=== PATIENT | male | born 1960 | race Caucasian/White ===

== ENCOUNTER 2019-10-07 23:16 | Emergency (ER) | payer OTHER ==
[2019-10-07] MEDS: Sodium Chloride 0.9% 1,000 ML IV ONE (23:35)
[2019-10-07] MEDS: Thiamine 100 MG Tab PO ONE (23:40)
[2019-10-07] MEDS: Multivitamin, Childrens Tab.Chew PO SCH (23:45)
--- NOTE | 2019-10-08 00:02 | EDM.PDOC ---
ED HPI GENERAL MEDICAL PROBLEM - General Chief Complaint: General Stated Complaint: Seizure Time Seen by Provider: 10/07/19 23:25 Source of Information: Reports: Patient, EMS History Limitations: Reports: Intoxication - History of Present Illness INITIAL COMMENTS - FREE TEXT/NARRATIVE: Patient is [place] with friends [place]. He has been drinking since early AM consuming approximately 15+ alcoholic drinks. He states he did have some water through out the day. They were playing cards and he was witnessed to have some 'jerking motion' believed to be a seizure for approximately 4 minutes. He did fall and hit his head. He does not remember the incident. On arrival he is talking appropriately. He knows his name, where he is, and the president of the . Initial Neuro exam on arrival is without deficit. GCS is 15. Onset: Today, Sudden Onset Date: 10/07/19 Onset Time: 22:00 Duration: Minutes: (4 ) Location: Reports: Head (wittnest seizure like activity, abrasion top left) Quality: Reports: Other (denies pain) Improves with: Reports: None Worsens with: Reports: None Associated Symptoms: Reports: Confusion - Related Data Allergies Allergy/AdvReac Type Severity Reaction Status Date / Time No Known Allergies Allergy Verified 10/08/19 02:18 ED ROS GENERAL - Review of Systems Review Of Systems: See Below Constitutional: Reports: No Symptoms HEENT: Reports: Sinus Problem Respiratory: Denies: Shortness of Breath, Wheezing, Cough Cardiovascular: Reports: Blood Pressure Problem (lisinopril for hypertension), Lightheadedness. Denies: Chest Pain, Dyspnea on Exertion, Edema, Syncope Endocrine: Reports: No Symptoms GI/Abdominal: Reports: No Symptoms : Reports: No Symptoms Musculoskeletal: Reports: No Symptoms Skin: Reports: Wound (abrasion on top of head) Neurological: Reports: Confusion, Dizziness, Seizure, Weakness. Denies: Headache, Numbness, Paresthesia, Tingling, Tremors, Trouble Speaking Psychiatric: Reports: No Symptoms Hematologic/Lymphatic: Reports: No Symptoms Immunologic: Reports: No Symptoms ED EXAM, GENERAL - Physical Exam Exam: See Below Exam Limited By: Intoxication Ears: Normal External Exam, Normal Canal, Hearing Grossly Normal, Normal TMs Nose: Normal Inspection, Normal Mucosa, No Blood Throat/Mouth: Normal Inspection, Normal Lips, Normal Teeth, Normal Gums, Normal Voice, No Airway Compromise Head: Normocephalic, Other (abrasion on top of head 4cm around ). No: Facial Swelling, Facial Tenderness, Sinus Tenderness Neck: Normal Inspection, Supple, Non-Tender, Full Range of Motion. No: Carotid Bruit Respiratory/Chest: No Respiratory Distress, Lungs Clear, Normal Breath Sounds, No Accessory Muscle Use Cardiovascular: Normal Peripheral Pulses, Regular Rate, Rhythm, No Edema, No Gallop, No JVD, No Murmur, No Rub GI/Abdominal: Soft, Non-Tender, No Organomegaly, No Distention, No Abnormal Bruit, No Mass Back Exam: Normal Inspection, Full Range of Motion Extremities: Normal Inspection, Normal Range of Motion, Normal Capillary Refill Neurological: Alert, Oriented, CN II-XII Intact, Normal Reflexes, Memory Loss Recent Events (does not recall incident prior to arrival. does recall events of the day up to seizure like activity and fall). No: Confused, Disoriented, Slow to Respond, Unresponsive Psychiatric: Normal Affect, Normal Mood Skin Exam: Warm, Dry, Normal Color Lymphatic: No Adenopathy EKG INTERPRETATION EKG Date: 10/07/19 Time: 23:42 Rhythm: NSR [place]: Normal P-Wave: Present QRS: Normal QT: Normal Comparison: NA - No Prior EKG EKG Interpretation Comments: Normal sinus rhythm. Course - Vital Signs Text/Narrative:: IV fluids 1Ltr, Thiamin and MultiVit orally. Labs (CBC, CMP CK), CT Scan of heat without contrast Last Recorded V/S: Last Vital Signs Temp 36.4 C 10/07/19 23:27 Pulse 92 10/08/19 00:30 Resp 20 10/08/19 00:30 BP 153/95 H 10/08/19 01:00 Pulse Ox 94 L 10/08/19 00:30 - Orders/Labs/Meds Orders: Active Orders 24 hr Category Date Time Status EKG Documentation Completion [RC] ASDIRECTED Care 10/07/19 23:32 Active EKG NSR no comparison available. Pt does take Lisinopril for HTN Head CT - No evidence of acute intracranial abnormality per radiologist read Labs: Laboratory Tests 10/07/19 10/08/19 10/08/19 Range/Units 23:50 00:05 00:06 WBC 5.4 (4.0-11.0) K/uL RBC 4.50 (4.50-6.50) M/uL Hgb 14.8 (13.0-18.0) g/dL Hct 42.2 (40.0-54.0) % MCV 94 (76-96) fL MCH 32.9 H (27.0-32.0) pg MCHC 35.1 H (31.0-35.0) g/dL RDW 12.5 (11.0-16.0) % Plt Count 221 (150-400) K/uL MPV 9.5 (6.0-10.0) fL Neut % (Auto) 34.3 L (45.0-70.0) % Lymph % (Auto) 51.0 H (20.0-40.0) % Gem % (Auto) 11.2 H (3.0-10.0) % Eos % (Auto) 2.2 (1.0-5.0) % Baso % (Auto) 1.3 H (0.0-0.5) % Neut # (Auto) 1.83 L (2.00-7.50) K/uL Lymph # (Auto) 2.73 (1.50-4.00) K/uL Gem # (Auto) 0.60 (0.20-0.80) K/uL Eos # (Auto) 0.12 (0.04-0.40) K/uL Baso # (Auto) 0.07 (0.02-0.10) K/uL Sodium 130 L (136-145) mmol/L Potassium 3.8 (3.5-5.1) mmol/L Chloride 97 L (98-107) mmol/L Carbon Dioxide 21.7 (21.0-32.0) mmol/L Anion Gap 15.1 H (5.0-15.0) mmol/L BUN 13 (8-26) mg/dL Creatinine 1.02 (0.70-1.30) mg/dL Est Cr Clr Drug Dosing TNP Estimated GFR (MDRD) > 60 (>60) MLS/MIN BUN/Creatinine Ratio 12.7 (6-25) Glucose 109 H (74-100) mg/dL Calcium 7.8 L (8.5-10.1) mg/dL Total Bilirubin 0.3 (0.0-1.0) mg/dL AST 18 (15-37) U/L ALT 33 (12-78) U/L Alkaline Phosphatase 66 (46-116) U/L Creatine Kinase 66 (21-232) U/L Total Protein 7.9 (6.4-8.2) g/dL Albumin 3.8 (3.4-5.0) g/dL Globulin 4.1 (2.2-4.2) g/dL Albumin/Globulin Ratio 0.9 (0.8-2.0) Meds: Medications Discontinued Medications Generic Name Dose Route Start Last Admin Trade Name Shaista PRN Reason Stop Dose Admin Sodium Chloride 1,000 mls @ 999 drops/hr 10/07/19 23:35 10/08/19 00:35 Normal Saline IV 10/08/19 14:35 Infused .BOLUS ONE Infusion Multivitamins/Minerals/Vitamin C 1 tab 10/07/19 23:45 10/07/19 23:45 Childrens Chewable Vitamin PO 1 tab DAILY ROCK Administration Thiamine HCl 100 mg 10/07/19 23:32 10/07/19 23:40 Vitamin B-1 PO 10/07/19 23:33 100 mg ONETIME ONE Administration - Radiology Interpretation Free Text/Narrative:: NO evidence of acute intracranial abnormality per radiologist read CT does reveal kimberly mild sinonasal mucoperiosteal thickening that corresponds with patents stated seasonal allergies. - Re-Assessments/Exams Free Text/Narrative Re-Assessment/Exam: 10/08/19 00:43 Re-evaluation. Neuro intact, Able to state why he is in ER, speech is not slurred and able to carry on conversation. Patient states he is a regular every day drinker and never had any previous incident similar to the events of tonight. Patient feeling better after receiving fluids. Patient denies Headache. Vital signs are stable with O2 saturation at 96% RA. Patient ambulated and up to urinate with only standby assist. Patient denies dizziness with change of position. Patient does not have a safe ride away from the facility at this time. 10/08/19 01:01 Free Text/Narrative Re-Assessment/Exam: 10/08/19 15:40 Pt slept well through the night without further episode of seizure or altered state. Departed facility at 0630 with friend Departure - Departure Time of Disposition: 06:30 Disposition: Home, Self-Care 01 Condition: Fair Clinical Impression: Intoxication, Seizure - Discharge Information *PRESCRIPTION DRUG MONITORING PROGRAM REVIEWED*: No *COPY OF PRESCRIPTION DRUG MONITORING REPORT IN PATIENT KARINA: No Instructions: Non-Epileptic Seizures, Adult Referrals: PCP,None [Primary Care Provider] - Forms: ED Department Discharge Additional Instructions: Increase not-alcohol fluid intake. Reduce/avoid alcohol intake. Return to ER or Followup with primary care provider upon return to home if you have another se izure or siezure like activity. - My Orders Last 24 Hours: My Active Orders 10/07/19 23:32 EKG Documentation Completion [RC] ASDIRECTED - Assessment/Plan Last 24 Hours: My Active Orders 10/07/19 23:32 EKG Documentation Completion [RC] ASDIRECTED
--- NOTE | 2019-10-08 12:10 | CT ---
Date of Service: 10/07/2019 Clinical Data: seizure UNENHANCED BRAIN CT, No priors. No masses or mass effect. No intracranial hemorrhage. No evidence of acute or subacute infarct. There is minimal mucosal thickening in the ethmoid sinuses consistent with chronic sinusitis. No osseous abnormalities. IMPRESSION: No acute intracranial abnormalities. [id number] [facility]
== END 2019-10-08 06:25 | disposition home or self-care (01) ==
LOC: LB.ED 23:16
DX: R56.9 Unspecified convulsions (principal); F10.129 Alcohol abuse with intoxication, unspecified
CPT/HCPCS: 36415; 70450; 80053; 82550; 85025; 93005; 99285-25; A9270-GY; J7030